=== PATIENT | male | born 1985 | race Hispanic/Latino ===

== ENCOUNTER 2024-04-10 18:11 | Emergency (ER) | payer OTHER, SELFPAY ==
[2024-04-10 18:17] VITALS: BP 123/65
[2024-04-10 18:21] VITALS: BP 123/65
[2024-04-10 18:24] VITALS: BMI 25.6
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
[2024-04-10] MEDS: MOTRIN 400 MG PO (19:43)
== END 2024-04-10 21:05 ==
LOC: EMR 18:11
PROVIDERS: EMERGENCY PHYSICIAN Emergency Medicine
DX: S46.212A Strain of muscle, fascia and tendon of other parts of biceps, left arm, initial encounter (principal); X58.XXXA Exposure to other specified factors, initial encounter; M25.512 Pain in left shoulder; R20.0 Anesthesia of skin; Z65.3 Problems related to other legal circumstances
CPT/HCPCS: 99283; 73030